=== PATIENT | male | born 1955 | race African-American/Black ===

== ENCOUNTER 2021-08-30 18:53 | Emergency (ER) | payer MEDICARE, SELFPAY ==
[2021-08-30 19:00] VITALS: BP 180/80; PULSE 77; RESP 14; TEMP 37.4; O2SAT 98
[2021-08-30 19:13] VITALS: BP 180/80; PULSE 77; RESP 14; TEMP 37.4; O2SAT 98
[2021-08-30] MEDS: TETANUS/DIPHTHERIA TOXOIDS ADSORB 0.5 ML VIAL (*BKC) IM (19:37)
--- NOTE | 2021-08-30 19:54 | ED.WOUNDLAC ---
HPI - Wound/Laceration General Chief Complaint: Wound/Laceration Stated Complaint: lac on right ring finger Time Seen by Provider: 08/30/21 19:20 Source: patient and RN notes reviewed Mode of arrival: ambulatory Limitations: no limitations History of Present Illness HPI narrative: Patient presents today complaining of a laceration to his right fourth finger that was sustained at 1830 this evening. He cut it on a hand dryer at home as he was carrying it down some stairs. He denies any current pain. He is not up-to-date on his tetanus vaccine. Denies any numbness or tingling. He has not tried any [id number] treatment prior to arrival. Related Data Home Medications Medication Instructions Recorded Confirmed amlodipine 5 mg PO DAILY 08/30/21 08/30/21 Allergies Allergy/AdvReac Type Severity Reaction Status Date / Time No Known Allergies Allergy Verified 08/30/21 19:12 Review of Systems Review of Systems: CONSTITUTIONAL: Denies body aches, fever, chills, or sweats. EYES: Denies visual changes, redness, or discharge. ENT: Denies rhinorrhea, congestion, sore throat, or otalgia. CARDIOVASCULAR: Denies chest pain, palpitations, or edema. RESPIRATORY: Denies cough or dyspnea. GASTROINTESTINAL: Denies abdominal pain, nausea, vomiting, or diarrhea. GENITOURINARY: Denies dysuria or hematuria. SKIN: Denies rash, itching. + Finger laceration MUSCULOSKELETAL: Denies back pain, joint pain, or myalgia. NEUROLOGIC: Denies headache, numbness, tingling, or weakness. PSYCH: Denies depression or anxiety. FOR[facility]LY [facility] Past Medical History Medical History (Updated 08/31/21 @ 15:18 by Elise Kim, [facility], ) Hypertension Comments At time of signature, I have reviewed and agree with nursing past medical, surgical, social and family history unless otherwise noted. Please see nursing chart for further information. There is no relevant family history pertinent to the presenting complaint Exam Narrative: GENERAL: Well-appearing, well-nourished, and in no acute distress. HEAD: Normocephalic, atraumatic. EYES: EOMI. No redness or drainage. Conjunctivae normal. ENT: Mucous membranes pink and moist. NECK: Normal AROM. CHEST: No respiratory distress. EXTREMITIES: Normal range of motion. No edema. 2.5 cm full-thickness linear laceration to the dorsum of the right fourth proximal phalanx. Distal sensation intact. Capillary refill normal. Full AROM against resistance. Visualized portion of the tendon appears intact. SKIN: Warm, dry, no rash. Capillary refill normal. Normal skin turgor. NEURO: No focal deficits. Alert and oriented x3. Gait steady. PSYCH: Normal affect. No signs of depression or anxiety. Course Vital Signs Vital signs: Vital Signs Temperature 99.3 F 08/30/21 19:00 Pulse Rate 77 08/30/21 19:00 Respiratory Rate 14 08/30/21 19:00 Blood Pressure 180/80 H 08/30/21 19:00 Pulse Oximetry 98 08/30/21 19:00 Temperature 99.3 F 08/30/21 19:13 Pulse Rate 77 08/30/21 19:13 Respiratory Rate 14 08/30/21 19:13 Blood Pressure 180/80 H 08/30/21 19:13 Pulse Oximetry 98 08/30/21 19:13 Reviewed. Pt has been instructed to follow up with his PCP regarding his elevated blood pressure today. Procedures Laceration Laceration 1: Date: 08/30/21 Time: 19:45 Site: upper extremity (Right fourth finger) Side (If applicable): right Size (cm): 2.5 Description: linear Local Anesthetic: lidocaine 1% (Digital block) Amount of anesthesia used (mL): 6 Pre-repair: wound explored and irrigated ====== Skin Level ====== Skin layer closed with: nylon Size (cm): 5-0 Number of sutures: 7 Technique: simple, interrupted ====== Subcutaneous Layer ====== ====== Muscle Layer ====== ====== Tendon Layer ====== Dressing: Dressed and splinted by RN MDM - Wound/Laceration Differential Diagnosis Differen
== END 2021-08-30 20:09 | disposition home or self-care (01) ==
PROVIDERS: Emergency Provider Nurse Practitioner
DX: S61.214A Laceration without foreign body of right ring finger without damage to nail, initial encounter (principal); W45.8XXA Other foreign body or object entering through skin, initial encounter; Z23 Encounter for immunization; I10 Essential (primary) hypertension
CPT/HCPCS: 12001; 90471; 90714; 99202; G0463